=== PATIENT | female | born 1995 | race Asian ===

== ENCOUNTER 2024-08-26 14:05 | Emergency (ER) | payer SELFPAY ==
[~2024-08-26] VITALS: Ht 165.1 cm; Wt 93.0 kg
[2024-08-26 14:23] VITALS: BP 143/91; RESP 18; O2SAT 99
[2024-08-26 14:30] VITALS: PULSE 112; O2SAT 98
[2024-08-26 15:00] LABS: BASOPHILS % 0.7 % (0.0-2.0); EOSINOPHILS % 0.6 % (0.0-5.0); HEMATOCRIT. 43.8 % (36.0-48.0); HEMOGLOBIN. 14.4 g/dL (12.0-16.0); LYMPHOCYTES % 23.4 % (20.0-50.0); MEAN CORPUSCULAR HEMOGLOBIN 29.8 pg (28.0-32.0); MEAN CORPUSCULAR HGB CONC 32.8 g/dL (31.0-37.0); MEAN CORPUSCULAR VOLUME 90.7 fL (81.0-99.0); NEUTROPHILS % 67.3 % (40.0-76.0); PLATELET 358 x1000/uL (130-400); RED BLOOD CELL COUNT 4.82 mill/uL (4.2-5.4); RED CELL DISTRIBUTION WIDTH 14.5 % (11.6-14.6); WHITE BLOOD COUNT 11.5 x1000/uL (4.5-11.0)
[2024-08-26 15:03] LABS: HCG SCREEN POSITIVE
[2024-08-26 15:14] LABS: CHLORIDE 104 mEq/L (98-107); POTASSIUM 3.5 mEq/L (3.5-5.1); SODIUM 137 mEq/L (136-145)
[2024-08-26 15:15] LABS: CALCIUM 9.7 mg/dL (8.7-10.4); CARBON DIOXIDE 25 mEq/L (21-32); CLARITY URINE CLEAR (CLEAR); COLOR URINE YELLOW (YELLOW); GLUCOSE URINE NEGATIVE (NEGATIVE); KETONES URINE NEGATIVE (NEGATIVE); LEUKOCYTE ESTERASE URINE NEGATIVE (NEGATIVE); NITRITE URINE NEGATIVE (NEGATIVE); OCCULT BLOOD URINE 2+ (NEGATIVE); PH URINE 6.5 (4.5-8.0); PROTEIN URINE NEGATIVE (NEGATIVE); UROBILINOGEN URINE 0.2 E.U./dL (0.2-1.0)
[2024-08-26 15:20] LABS: CREATININE 0.7 mg/dL (0.6-1.0); GLUCOSE 91 mg/dL (70-105); UREA NITROGEN BLOOD 8 mg/dL (9-23)
[2024-08-26 15:22] LABS: ALANINE AMINOTRANSFERASE 65 IU/L (10-49); ASPARTATE AMINOTRANSFERASE 39 IU/L (<34); BILIRUBIN TOTAL 0.3 mg/dL (0.1-1.0); PROTEIN TOTAL 8.4 g/dL (6.0-8.3)
[2024-08-26 15:27] LABS: BILIRUBIN DIRECT < 0.1 mg/dL (<=3.0)
[2024-08-26 16:02] VITALS: TEMP 98.8
[2024-08-26] MEDS: ONDANSETRON 4MG ODT PO ONE (16:02)
[2024-08-26] MEDS: ACETAMINOPHEN 325MG TABLET PO ONE (16:02)
[2024-08-26] MEDS ORDERED: ACET-2708 MT (16:09)
[2024-08-26] MEDS ORDERED: ONDA-239 PO (16:09)
[2024-08-26 17:30] LABS: RBC URINE 0-2 /hpf (0-2); WBC URINE NONE SEEN /hpf (0-2)
[2024-08-26 17:31] LABS: BACTERIA URINE 1+; SQUAMOUS EPITHELIAL CELL URINE 1+ /lpf (RARE/1+)
== END 2024-08-26 18:18 | disposition home or self-care (01) ==
LOC: ER 14:05
DX: O21.8 Other vomiting complicating pregnancy (principal); O26.891 Other specified pregnancy related conditions, first trimester; Z3A.01 Less than 8 weeks gestation of pregnancy
CPT/HCPCS: 99284; 76705; 80076; 80048; 81003; 81025; 84703; 84702; 83690; 85025; 36415; Q0162